=== PATIENT | male | born 1940 | race Caucasian/White ===

== ENCOUNTER 2017-03-01 16:59 | Inpatient (IN) | payer OTHER, MEDICAID ==
[~2017-03-01] VITALS: Ht 175.3 cm; Wt 68.5 kg
--- NOTE | 2017-03-01 20:41 | NUR ---
ADMIT NOTE Received pt from Rakan Kessler to the floor with a diagnosis of dehydration . Admission process initiated. patient requires orientation to pain management, safety and call light-teach back done.
--- NOTE | 2017-03-01 21:30 | NUR ---
Rounds Pt is oriented to his name only and is at the bedside. No acute distress noted. Fall and safety precautions are in place. Three side rails are up and call light is with pt. Bed alarm is on. Bed is in the lowest and locked positions.
[2017-03-01 21:35] VITALS: BP 145/80; PULSE 69; RESP 20; TEMP 97.7; O2SAT 95
--- NOTE | 2017-03-01 22:30 | NUR ---
Rounds Pt is resting comfortably in bed.
[2017-03-01] MEDS ORDERED: NAPH15DR68 BOTH EYES (22:38)
[2017-03-01] MEDS ORDERED: COR6.25 PO (22:38)
[2017-03-01] MEDS ORDERED: CRAN450C PO (22:38)
[2017-03-01] MEDS ORDERED: DULR10 RC (22:38)
[2017-03-01] MEDS ORDERED: LACTIN PO (22:38)
[2017-03-01] MEDS ORDERED: DOCU-144 PO (22:38)
[2017-03-01] MEDS ORDERED: MAGN400O4 PO (22:38)
[2017-03-01] MEDS ORDERED: AMI200 PO (22:38)
[2017-03-01] MEDS ORDERED: MULT9LIQ6 PO (22:38)
[2017-03-01] MEDS ORDERED: NA P133E41 RC (22:38)
[2017-03-01] MEDS ORDERED: FAMO20TA8 PO (23:00)
[2017-03-01] MEDS ORDERED: CHOL100035 PO (23:00)
[2017-03-01] MEDS ORDERED: CALC-740 PO (23:00)
[2017-03-01] MEDS ORDERED: SIMV20TA2 PO (23:00)
[2017-03-01] MEDS ORDERED: GUAI100S14 PO (23:00)
[2017-03-01] MEDS ORDERED: AMIN30LI2 PO (23:00)
[2017-03-01] MEDS ORDERED: ZINC50TA37 PO (23:00)
[2017-03-01] MEDS ORDERED: ASCO125T PO (23:00)
[2017-03-01] MEDS ORDERED: RIVA10TA PO (23:00)
[2017-03-01] MEDS ORDERED: SODI104S3 (23:00)
[2017-03-01] MEDS ORDERED: ASCO500T20 PO (23:00)
[2017-03-01] MEDS ORDERED: THIA100T70 PO (23:00)
[2017-03-01] MEDS ORDERED: NITSL SL (23:00)
[2017-03-01] MEDS ORDERED: TRAM100T13 PO (23:00)
[2017-03-01] MEDS ORDERED: NITROGLYCERIN 0.4 MG TAB.SUBL SL PRN (23:15)
[2017-03-01] MEDS ORDERED: SODIUM CHLORIDE 0.65% NASAL SPRAY NS PRN (23:15)
[2017-03-01] MEDS ORDERED: guaiFENesin 200 MG/10 ML UDC PO PRN (23:15)
[2017-03-01] MEDS ORDERED: CALCIUM CARBONATE 500 MG/ TAB.CHEW PO PRN (23:15)
[2017-03-01] MEDS ORDERED: INSULIN REGULAR, HUMAN 100 UNITS/ML, 10 ML VIAL (novoLIN R) SUBCUT PRN (23:15)
[2017-03-01] MEDS ORDERED: BISACODYL 10 MG/SUPPOSITORY RC PRN (23:15)
[2017-03-01] MEDS ORDERED: NA PHOS,M-B/NA PHOS,DI-BA 118 ML (FLEET ENEMA) RC PRN (23:15)
[2017-03-01] MEDS ORDERED: MILK OF MAGNESIA 30 ML UDC PO PRN ×2 (23:15)
[2017-03-01] MEDS ORDERED: NAPHAZOLINE HCL/PHENIRAMINE 15 ML OPHT. DROPS BOTH EYES PRN (23:15)
--- NOTE | 2017-03-01 23:34 | NUR ---
CONSULTATION PAGED REASON FOR CONSULTATION:RIGHT HIP PAIN WAS CONSULT CALLED?Y PERSON WHO WAS NOTIFIED:HAYES CONSULTING PHYSICIAN:NAYELY PABON MASTER BREWER SPECIALTY:SURGEON MASTER BREWER PHONE NUMBER:[phone]
[2017-03-02] VITALS: BP 131/77; PULSE 80; RESP 16; TEMP 97.7; O2SAT 97
--- NOTE | 2017-03-02 00:10 | NUR ---
Report Report given to Nurse Morse for continuity of pt's nursing care.
--- NOTE | 2017-03-02 01:54 | NUR ---
ROUNDS PATIENT IS SLEEPING WITH VISIBLE RISE AND FALL OF CHEST NOTED. NO ACUTE S/S OF DISTRESS. BED IN LOWEST POSITION, FALL PRECAUTIONS IN PLACE, BED ALARM ON. CALL LIGHT WITHIN REACH. WILL CONTINUE TO MONITOR
[2017-03-02 04:00] VITALS: BP 115/65; PULSE 72; RESP 16; TEMP 98; O2SAT 96
--- NOTE | 2017-03-02 04:00 | NUR ---
ROUNDS PATIENT IS SLEEPING WITH VISIBLE RISE AND FALL OF CHEST NOTED. NO ACUTE S/S OF DISTRESS. BED IN LOWEST POSITION, FALL PRECAUTIONS IN PLACE, BED ALARM ON. CALL LIGHT WITHIN REACH. WILL CONTINUE TO MONITOR. FAMILY AT BEDSIDE.
--- NOTE | 2017-03-02 05:48 | NUR ---
ROUNDS PATIENT IS AWAKE AND ALERT, WITH AT BEDSIDE. NO S/S OF ACUTE DISTRESS NOTED. FALL PRECAUTIONS IN PLACE. WILL CONTINUE TO MONITOR.
--- NOTE | 2017-03-02 06:00 | NUR ---
CLOSING NOTES PATIENT RESTING IN SEMI-PALENCIA'S POSITION. AT BEDSIDE. NO S/S OF ACUTE DISTRESS NOTED. BED IN LOWEST POSITION, BED ALARM ON, CALL LIGHT WITHIN REACH. WILL ENDORSE CARE TO DAY SHIFT NURSE.
[2017-03-02 06:20] LABS: BASOPHILS % (AUTO) 0.5 % (0.0-2.0); EOSINOPHILS # (AUTO) 0.1 K/uL (0.0-0.4); EOSINOPHILS % (AUTO) 1.9 % (0.0-4.0); HEMATOCRIT 37.4 % (36-54); HEMOGLOBIN 12.8 g/dL (14.0-18.0); LYMPHOCYTES # (AUTO) 1.3 K/uL (1.0-5.5); MEAN CORPUSCULAR HEMOGLOBIN 31 pg (27-31); MEAN CORPUSCULAR HGB CONC 34 % (32-36); MEAN CORPUSCULAR VOLUME 91 fL (79.0-98.0); MONOCYTES % (AUTO) 14.8 % (1.7-9.3); NEUTROPHILS # (AUTO) 4.6 K/uL (1.8-7.7); NEUTROPHILS % (AUTO) 64.8 % (40.0-70.0); PLATELET COUNT (AUTO) 243 K/uL (130-430); RED BLOOD CELL COUNT(AUTO) 4.11 MIL/uL (4.2-6.2); RED CELL DISTRIBUTION WIDTH 12.5 % (9.0-15.0)
[2017-03-02 06:40] LABS: ANION GAP 5 (5-15); CALCIUM 8.7 mg/dL (8.4-11.0); CHLORIDE 99 mmol/L (98-107); CREATININE 1.01 mg/dL (0.55-1.30); GLUCOSE 105 mg/dL (70-99); POTASSIUM 4.5 mmol/L (3.5-5.1); SODIUM SERUM 134 mmol/L (136-145); UREA NITROGEN, BLOOD 16 mg/dL (8-21)
--- NOTE | 2017-03-02 07:28 | NUR ---
DR COXIUM PAGED REGARDING PAIN MEDS
[2017-03-02] MEDS ORDERED: traMADol HCL HCL 50 MG TABLET (ULTRAM) PO PRN (07:45)
[2017-03-02] MEDS ORDERED: HYDROmorphone 1 MG INJ. 1 MG/ML AMPUL IVP PRN (07:45)
[2017-03-02] MEDS ORDERED: HYDROmorphone 1 MG INJ. 1 MG/ML AMPUL ONE (07:47)
--- NOTE | 2017-03-02 07:58 | NUR ---
DR PATRICA HERZOG
--- NOTE | 2017-03-02 08:00 | NUR ---
opening rounds pt sitting up in bed and is assisted by his in eating breakfast. vitals are stable and pt stated he is comfortable now that pain medication has been administered
[2017-03-02 08:38] VITALS: BP 119/77; PULSE 85; RESP 17; TEMP 98.1; O2SAT 92
--- NOTE | 2017-03-02 08:38 | NUR ---
IV RE-INSERTION: IV RIGHT ARM 20G came out accidentally. Restarted on left arm 22g . Successful after 2 attempts. pain medication administered. Will observe for any signs of infiltration.
--- NOTE | 2017-03-02 08:38 | NUR ---
RADIOLOGY AT BEDSIDE.
[2017-03-02] MEDS: DOCUSATE SODIUM 100 MG CAPSULE PO SCH ×2 (08:50→21:34)
[2017-03-02] MEDS: RIVAROXABAN 10 MG TABLET PO SCH (08:51)
[2017-03-02] MEDS: AMIODARONE HCL 200 MG TABLET PO SCH (08:51)
[2017-03-02] MEDS: ASCORBIC ACID 500 MG TABLET PO SCH (08:52)
[2017-03-02] MEDS: CARVEDILOL 6.25 MG TABLET (COREG) PO SCH ×2 (08:52→21:35)
--- NOTE | 2017-03-02 09:03 | NUR ---
Nutrition Update Douglas Scale 17 noted. Pt admitted for dehydration, dysphasia, multiple falls. Diet: [facility] BMI: 22.3 kg/m2 RD to follow per nutrition care standards.
--- NOTE | 2017-03-02 10:00 | NUR ---
ROUNDS PT IN BED, STILL A LITTLE CONTRACTED BUT APPEARS MORE COMFORTABLE THAN MY LAST ROUNDS. AND DAUGHTER AT BEDSIDE
[2017-03-02] MEDS: traMADol HCL HCL 50 MG TABLET (ULTRAM) PO SCH ×3 (12:00→23:49)
--- NOTE | 2017-03-02 12:00 | NUR ---
ROUNDS PT STILL SITTING UP IN CHAIR, HE WAS PLACED BY PHYSICAL THERAPY. PT IS RESTING AND STATED HE IS COMFORTABLE AND WANTED TO CONTINUE SITTING IN THE CHAIR A LITTLE LONGER. i WILL CONTINUE TO MONITOR
[2017-03-02 12:42] VITALS: BP 113/72; PULSE 64; RESP 16; TEMP 97.4; O2SAT 96
--- NOTE | 2017-03-02 13:41 | NUR ---
DR MCDONOUGH AT BEDSIDE
--- NOTE | 2017-03-02 16:18 | NUR ---
ROUNDS PT IN BED, AT BEDSIDE. FALL PRECAUTION IN PLACE
[2017-03-02 16:39] VITALS: BP 117/59; PULSE 66; RESP 20; TEMP 98.2; O2SAT 95
--- NOTE | 2017-03-02 18:30 | NUR ---
CLOSING NOTES PT SITTING UP IN BED, WATCHING TV. HIS IS STILL AT BEDSIDE. PT IS STABLE, CLEAN AND COMFORTABLE
[2017-03-02 19:30] VITALS: BP 147/84; PULSE 86; RESP 16; TEMP 97.7; O2SAT 95
--- NOTE | 2017-03-02 19:30 | NUR ---
NOTES RECEIVED THE PT FROM THE DAY NURSE.PT ORIENTED TO NAME ONLY , IS AT THE BEDSIDE AND STATES HE IS TIRED AFTER HAVING A BATH.IV TO RT FOREARM INTACT.BED ALARM IS ON.CALL LIGHT WITHIN REACH ,SAFETY MEASURES IN PROGRESS.CONTINUE TO MONITOR.
[2017-03-02] MEDS: SIMVASTATIN 20 MG TABLET PO SCH (21:34)
[2017-03-02] MEDS: FAMOTIDINE 20 MG TABLET PO SCH (21:34)
--- NOTE | 2017-03-02 21:49 | NUR ---
NOTES PT AWAKE,MEDICATIONS TAKEN WELL WITH APPLE SAUCE,TALI CRUSHED.ACCUCHECK WAS 131 NO INSULIN NEEDED.CONTINUE TO MONITOR.
--- NOTE | 2017-03-02 23:30 | NUR ---
NOTES PT SLEEPING.FAMILY AT THE BEDSIDE.CALL LIGHT WITHIN REACH.CONTINUE TO MONITOR.
[2017-03-03 01:08] VITALS: BP 157/80; PULSE 83; RESP 18; TEMP 98.1; O2SAT 95
--- NOTE | 2017-03-03 01:39 | NUR ---
NOTES PT REMAINS ASLEEP.CALL LIGHT WITHIN REACH.CONTINUE TO MONITOR.
--- NOTE | 2017-03-03 03:25 | NUR ---
NOTES PT REPOSITIONED WITH PILLOW SUPPORT.CALL LIGHT WITHIN REACH.CONTINUE TO MONITOR.
--- NOTE | 2017-03-03 05:12 | NUR ---
NOTES PT CLEANED LINEN CHANGED.,REPOSITIONED WITH PILLOW SUPPORT.CONTINUE TO MONITOR
[2017-03-03] MEDS: traMADol HCL HCL 50 MG TABLET (ULTRAM) PO SCH ×5 (05:30→18:26)
--- NOTE | 2017-03-03 05:59 | NUR ---
CLOSING NOTES PT AWAKE,ACCUCHECK WAS 128,NO INSULIN NEEDED.PT STATED THAT HE WANTS TO GO HOME. IS AT THE BEDSIDE.PT REPOSITIONED SO HE CAN DRINK HIS COFFEE.WILL ENDORSE THE CARE OF THE PT TO THE DAY NURSE.
[2017-03-03 06:34] VITALS: BP 112/68; PULSE 68; RESP 16; TEMP 98; O2SAT 95
--- NOTE | 2017-03-03 08:12 | NUR ---
PATIENT IS SLEEPING, IS AT BEDSIDE SLEEPING IN RECLINER. AWOKEN FOR VITALS, PATIENT DENIES ANY PAIN AT THIS TIME. LUNGS CLEAR.
[2017-03-03 08:17] VITALS: BP 148/90; PULSE 60; RESP 20; TEMP 98.6; O2SAT 98
[2017-03-03] MEDS: ASCORBIC ACID 500 MG TABLET PO SCH (09:05)
[2017-03-03] MEDS: DOCUSATE SODIUM 100 MG CAPSULE PO SCH ×2 (09:05→21:00)
[2017-03-03] MEDS: RIVAROXABAN 10 MG TABLET PO SCH (09:05)
[2017-03-03] MEDS: CARVEDILOL 6.25 MG TABLET (COREG) PO SCH ×2 (09:06→21:00)
[2017-03-03] MEDS: AMIODARONE HCL 200 MG TABLET PO SCH (09:07)
--- NOTE | 2017-03-03 12:19 | NUR ---
HAS BEEN AT BEDSIDE THROUGHOUT DAY. ASSISTING PATIENT WITH EATING. BG 142, NO COVERAGE NEEDED. PATIENT IS AWAKE, ALERT, STILL GARBLED SPEECH AND DIFFICULT TO UNDERSTAND AT TIMES
[2017-03-03 12:26] VITALS: BP 116/62; PULSE 70; RESP 18; TEMP 98.3; O2SAT 93
--- NOTE | 2017-03-03 14:24 | NUR ---
PHYSICAL THERAPY CO-SIGN The Physical Therapy Progress Notes documented by User Experience Architect have been reviewed. I CONCUR W/LEGAL BILLING ANALYST NOTE; CONT PER TX PLAN Reviewed/Co-Signed by: Kina Walton PT Documentation Done by: JOSUÉ MARS LEGAL BILLING ANALYST Addendum: 03/03/17 at 1424 by Kina Walton PT Amended: Links added.
--- NOTE | 2017-03-03 16:00 | NUR ---
REPORT FROM LAB CONFIRMING PT POSITIVE FOR MRSA IN NARES. DR MCDONOUGH PAGED. TAUGHT ABOUT CONTACT PRECAUTIONS BY ADRIANA OWENS RN. VERBALIZED UNDERSTANDING.
[2017-03-03 17:02] VITALS: BP 130/62; PULSE 73; RESP 18; TEMP 98.2; O2SAT 95
--- NOTE | 2017-03-03 17:41 | NUR ---
BG 128, NO COVERAGE NEEDED. PATIENT IS RESTING COMFORTABLY ON LEFT SIDE IN BED. NO SIGNS OF DISTRESS.
[2017-03-03 20:00] VITALS: BP 138/69; PULSE 78; RESP 16; TEMP 98.5; O2SAT 93
--- NOTE | 2017-03-03 20:00 | NUR ---
STARTING INTERNAL GRINDING MACHINE OPERATOR NOTE Patient in bed sleeping. is at the bed side stating that she will spend the night. No S/S of any distress noted, no pain. Fall precautions in place. Report received from the day shift nurse.
[2017-03-03] MEDS: FAMOTIDINE 20 MG TABLET PO SCH (21:00)
[2017-03-03] MEDS: SIMVASTATIN 20 MG TABLET PO SCH (21:00)
--- NOTE | 2017-03-03 22:00 | NUR ---
2200 NOTE Patient in bed sleeping. No distress or pain noted. is at the bed side. Fall precautions in place.
[2017-03-03] MEDS ORDERED: MUPIROCIN NASAL 2% OINT. 1 GM NS ONE (23:45)
[2017-03-04] VITALS (7 sets, daily range): BP systolic 103–159; BP diastolic 48–77; PULSE 61–86; RESP 18–20; TEMP 98.4–99; O2SAT 93–96
--- NOTE | 2017-03-04 | NUR ---
NOTE Patient in bed sleeping. is at the bed side. No distress or pain noted. The nurse woke the patient up to take his scheduled Tramadol dose. He appeared confused and disoriented, but in no distress. Fall precautions in place.
[2017-03-04] MEDS: traMADol HCL HCL 50 MG TABLET (ULTRAM) PO SCH ×4 (00:25→18:00)
--- NOTE | 2017-03-04 02:06 | NUR ---
NOTE Patient in bed sleeping. also sleeping at the bed side. No S/S of distress or pain noted. Fall precautions in place.
--- NOTE | 2017-03-04 04:00 | NUR ---
NOTE Patient in bed sleeping. by the bed side. No distress or pain noted. Fall precautions in place.
--- NOTE | 2017-03-04 06:00 | NUR ---
NOTE Patient in bed resting comfortably. He is trying to say something, speech is slurred, but he is not in distress or pain. Bed in lowest position, call light within reach.
--- NOTE | 2017-03-04 07:25 | NUR ---
OPENING NOTE PER SPEECH LANGUAGE PATHOLOGIST TRAVEL NO CALL FROM DR MCDONOUGH, NO VISIT. THERE IS AN ORDER FOR BACTROBAN FOR THIS AM. PT REMAINS AT BEDSIDE. PATIENT IS SLEEPING PEACEFULLY. NO SIGNS OF DISTRESS
[2017-03-04] MEDS: RIVAROXABAN 10 MG TABLET PO SCH (09:09)
[2017-03-04] MEDS: MUPIROCIN 2% TOPICAL OINTMENT 22 GM TP SCH ×2 (09:09→20:12)
[2017-03-04] MEDS: DOCUSATE SODIUM 100 MG CAPSULE PO SCH ×2 (09:09→20:11)
[2017-03-04] MEDS: ASCORBIC ACID 500 MG TABLET PO SCH (09:09)
[2017-03-04] MEDS: CARVEDILOL 6.25 MG TABLET (COREG) PO SCH ×2 (09:13→20:11)
[2017-03-04] MEDS: AMIODARONE HCL 200 MG TABLET PO SCH (09:13)
--- NOTE | 2017-03-04 12:30 | NUR ---
patient has been up to recliner for past hour. is sleeping. has gone to run errands. no signs of distress. bg 125, no coverage needed
--- NOTE | 2017-03-04 12:51 | NUR ---
tramadol held due to patient's lethargy
--- NOTE | 2017-03-04 14:15 | NUR ---
Douglas scale evaluation: Patient evaluated for a low Douglas score of 12. Patient was awake alert confused, and received in a [place] bed with an Isoflex BRYAN mattress. Patient is unable to turn in bed independently. Skin is poor; bilateral buttocks have non-intact skin. Recommend reposition patient side to side only every 2 hours with pillow support, and offload pressure areas with pillows for pressure redistribution. Elevate, offload and float bilateral heels with pillows lengthwise. Use moisture barrier cream on moisture susceptible areas 4 times a day, and as needed for soiling. Perform skin care and monitor skin integrity every shift. Place patient on a low air loss mattress. Skin assessment: 1: Right buttock: Moisture associated wound from IAD, present on admission. Wound bed is 100% dark red tissue. No odor, no drainage, dry flaky skin present. Simran-wound intact. Wound measures 3.0 cm X 2.0 cm. 2: Left buttock: Moisture associated wound from IAD, present on admission. Wound bed is 100% dark red tissue. No odor, no drainage, dry flaky skin present. Simran-wound intact. Wound measures 3.0 cm X 3.0 cm. Recommend: Cleanse involved areas with mild soap and water. Pat dry. Cover involved areas with moisture barrier cream. Put Hydrogel onto any open areas not covered by barrier cream. Cover with sacral foam dressing. Perform site care daily, and as needed for dressing soiling or dislodgment.
--- NOTE | 2017-03-04 16:08 | NUR ---
PHYSICAL THERAPY CO-SIGN The Physical Therapy Progress Notes documented by Assembly Supervisor have been reviewed. Reviewed/Co-Signed by: Lainey Hernandez PT Documentation Done by:JOSUÉ MARS BINDING FOLDER MACHINE WILL BENEFIT W/ P.T.; POC REVIEWED W/BINDING FOLDER MACHINE Addendum: 03/04/17 at 1609 by Lainey Hernandez PT Amended: Links added.
--- NOTE | 2017-03-04 17:21 | NUR ---
DISCHARGE PLANNING NOTE: BURN OUT TENDER LACE faxed pt's information to [facility] (pfd-[phone]/ phone- [phone]). BURN OUT TENDER LACE spoke with Farshad at [facility]. Farshad states pt is accepted to room 14B. BURN OUT TENDER LACE spoke with Mireya Ignacio, and Mireya will arrange pt's transportation to [facility].
--- NOTE | 2017-03-04 17:33 | NUR ---
DC ORDERS FROM DR MCDONOUGH GIVEN. PT HAS BED AT [facility]. AMB TRANSPORT BEING ARRANGED. WILL CALL REPORT TO SNF. IS AT BEDSIDE. PER DR MCDONOUGH PT SHOULD HAVE DINNER BEFORE TRANSPORT.
--- NOTE | 2017-03-04 18:45 | NUR ---
AMBULANCE TRANSPORT NOT EXPECTED UNTIL AFTER 830PM. WILL ENDORSE TO NIGHTSHIFT.
--- NOTE | 2017-03-04 19:45 | NUR ---
ROUNDS PATIENT IN BED, NOT IN DISTRESS, VITALS STABLE, NO PAIN AND DISCOMFORT AT THIS TIME. ASSESSMENT DONE AND DOCUMENTED. SEE FLOWSHEET. NEEDS ATTENDED TO. PATIENT BEING PREPARED FOR DISCHARGE BACK TO [facility] ORDERED. FAMILY AT THE BEDSIDE. SAFETY MEASURES IN PLACED. WILL CONTINUE TO MONITOR.
[2017-03-04] MEDS: SIMVASTATIN 20 MG TABLET PO SCH (20:11)
[2017-03-04] MEDS: FAMOTIDINE 20 MG TABLET PO SCH (20:11)
--- NOTE | 2017-03-04 20:11 | NUR ---
MEDICATIONS DUE MEDICATIONS GIVEN SCHEDULED, CRUSHED WITH APPLESAUCE, TOLERATED WELL.
--- NOTE | 2017-03-04 20:25 | NUR ---
NOTES TRANSITION OF CARE INSTRUCTIONS GIVEN TO PATIENT'S WHO VERBALIZED UNDERSTANDING AND SIGNED DISCHARGE DOCUMENT. ALL NEEDS ATTENDED TO. WILL CONTINUE TO MONITOR AND WAIT FOR TRANSPORT AMBULANCE.
--- NOTE | 2017-03-04 20:40 | NUR ---
CLOSING NOTES PATIENT DISCHARGED VIA BLS TO [facility] ORDERED WITH STABLE VITAL SIGNS. NO PAIN AND DISCOMFORT NOTED AT THIS TIME. ALL NEEDS ATTENDED TO. SAFETY AND FALL PRECAUTION MEASURES MAINTAINED.
== END 2017-03-04 20:40 | DRG 554 ==
LOC: SMU 20:35
PROVIDERS: ADMIT Family Medicine; ATTEND Family Medicine
DX: M16.11 Unilateral primary osteoarthritis, right hip (principal); E11.9 Type 2 diabetes mellitus without complications; I10 Essential (primary) hypertension; I49.9 Cardiac arrhythmia, unspecified; Z22.322 Carrier or suspected carrier of Methicillin resistant Staphylococcus aureus
CPT/HCPCS: 36415; 72170-TC; 80048; 82962; 85025; 87081; 97110-GP; 97530-GP; J1170; J1815